=== PATIENT | female | born 1985 | race Asian ===

== ENCOUNTER 2019-01-27 19:50 | Emergency (ER) | payer OTHER ==
--- NOTE | 2019-01-27 20:21 | ED Physician Documentation ---
PD HPI ABD PAIN - Stated complaint Stated Complaint: BACK PX/FEVER/CHILLS/ACHES - Chief complaint Chief Complaint: Abd Pain - History obtained from History obtained from: Patient - History of Present Illness Timing - onset: Other (4 days ago with frequency/hematuria. That resolved p cranberry juice. Followed 2 days later with R lateral abd pain, fevers, chills/malaise. No vomiting.) Review of Systems Ten Systems: 10 systems reviewed and negative Constitutional: reports: Fever, Chills, Myalgias, Fatigue GI: reports: Abdominal Pain. 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 - Present Medications Home Medications: Ambulatory Orders Medication Instructions Recorded Confirmed Albuterol [Ventolin Hfa] 2 puffs INH Q4H PRN #1 inhaler 11/07/14 02/19/15 Ondansetron Odt [Zofran] 4 mg TL Q6H PRN #10 tablet 02/19/15 Hydrocodone/Acetaminophen 1 - 2 each PO Q6H PRN #14 tablet 02/20/15 [Hydrocodon-Acetaminophen 5-325] Promethazine [Phenergan] 25 mg PO Q6H PRN #10 tab 02/20/15 RX: HYDROcod/ACETAM 5/325 [[place] 1 - 2 ea PO Q6H PRN #15 tablet 05/27/16 5/325] Hydrocodone/Acetaminophen 1 - 2 each PO Q6H PRN #14 tablet 01/27/19 [Hydrocodon-Acetaminophen 5-325] Ondansetron Odt [Zofran] 4 mg TL Q6H PRN #10 tablet 01/27/19 RX: Cefdinir 300 mg PO BID #28 capsule 01/27/19 - Allergies Allergies/Adverse Reactions: Allergies Allergy/AdvReac Type Severity Reaction Status Date / Time No Known Drug Allergies Allergy Verified 02/19/15 10:22 - Social History Does the pt smoke?: Yes Smoking Status: Current every day smoker Does the pt drink ETOH?: Yes Does the pt have substance abuse?: No - Immunizations Immunizations are current?: Yes - POLST Patient has POLST: Yes PD ED PE NORMAL - Vitals Vital signs reviewed: Yes - General General: Alert and oriented X 3, No acute distress - Cardiac Cardiac: RRR, No murmur - Respiratory Respiratory: No respiratory distress, Clear bilaterally - Abdomen Abdomen: Non tender, Non distended - Back Back: No CVA TTP - Neuro Neuro: Alert and oriented X 3, Normal speech Results - Vitals Vitals: Vital Signs - 24 hr 01/27/19 01/27/19 19:55 22:58 Temperature 37.5 C 37.1 C Heart Rate 109 H 94 Respiratory 18 16 Rate Blood Pressure 138/98 H 129/80 O2 Saturation 97 96 Oxygen O2 Source Room air - Labs Labs: Laboratory Tests 01/27/19 01/27/19 01/27/19 20:21 20:21 20:43 WBC 8.7 RBC 4.58 Hgb 14.2 Hct 44.0 MCV 96.1 MCH 31.0 MCHC 32.3 RDW 13.2 Plt Count 246 MPV 9.4 Neut # (Auto) 6.3 Lymph # (Auto) 1.2 L [place] # (Auto) 1.1 H Eos # (Auto) 0.0 Baso # (Auto) 0.1 Absolute Nucleated RBC 0.00 Nucleated RBC % 0.0 Sodium Potassium Chloride Carbon Dioxide Anion Gap BUN Creatinine Estimated GFR (MDRD) Glucose Calcium Total Bilirubin AST ALT Alkaline Phosphatase Total Protein Albumin Globulin Albumin/Globulin Ratio Lipase Urine Color YELLOW Urine Clarity HAZY Urine pH 5.5 Ur Specific [place] 1.020 1.020 Urine Protein TRACE Urine Glucose (UA) NEGATIVE Urine Ketones NEGATIVE Urine Occult Blood SMALL H Urine Nitrite NEGATIVE Urine Bilirubin NEGATIVE Urine Urobilinogen 0.2 (NORMAL) Ur Leukocyte Esterase NEGATIVE Urine RBC 6-10 H Urine WBC 0-3 Ur Squamous Epith Cells FEW Squamous Urine Bacteria Few Ur Microscopic Review INDICATED Urine Culture Comments NOT INDICATED Urine HCG, Qual NEGATIVE 01/27/19 20:43 WBC RBC Hgb Hct MCV MCH MCHC RDW Plt Count MPV Neut # (Auto) Lymph # (Auto) [place] # (Auto) Eos # (Auto) Baso # (Auto) Absolute Nucleated RBC Nucleated RBC % Sodium 136 Potassium 3.9 Chloride 100 L Carbon Dioxide 24 Anion Gap 12.0 BUN 10 Creatinine 0.8 Estimated GFR (MDRD) 82 L Glucose 131 H Calcium 9.5 Total Bilirubin 0.6 AST 94 H ALT 98 H Alkaline Phosphatase 69 Total Protein 8.3 H Albumin 4.1 Globulin 4.2 Albumin/Globulin Ratio 1.0 Lipase 32 Urine Color Urine Clarity Urine pH Ur Specific [place] Urine Protein Urine Glucose (UA) Urine Ketones Urine Occult Blood Urine Nitrite Urine Bilirubin Urine Urobilinogen Ur Leukocyte Esterase Urine RBC Urine WBC Ur Squamous Epith Cells Urine Bacteria Ur Microscopic Review Urine Culture Comments Urine HCG, Qual PD MEDICAL DECISION MAKING - ED course ED course: 34-year-old woman presents with abdominal pain which was associated with fever at home but not here, and preceded by urinary symptoms which is all suggestive of pyelonephritis but her urinalysis was negative. Given her right upper quadrant pain and mildly elevated liver enzymes this was followed by an ultrasound which was suggestive of may be fatty liver, but really nothing acute in the biliary tract. During that time her pain moved down a little bit and this raises the suspicion for appendicitis despite the normal white blood cell count and she was sent for a CT. To my eye this was negative for appendicitis but Dr. Rivera will follow up on the formal read. If it is negative for acute pathology she can be safely discharged with watchful waiting and conservative care. Departure - Departure Disposition: Home, Self Care Clinical Impression: Abdominal pain, Fatty liver, Pyelonephritis Condition: Good Record reviewed to determine appropriate education?: Yes Instructions: ED Kidney Infec Female Follow-Up: RUEL LEONARDO [Primary Care Provider] - Within 3 Days Prescriptions: RX: Cefdinir 300 mg PO BID #28 capsule Hydrocodone/Acetaminophen [Hydrocodon-Acetaminophen 5-325] 1 - 2 each PO Q6H PRN #14 tablet PRN Reason: pain Ondansetron Odt [Zofran] 4 mg TL Q6H PRN #10 tablet PRN Reason: Nausea / Vomiting Comments: Your CT scan appears that you have an early kidney infection, possible early abscesses, this will need to be followed closely by your doctor. Take all antibiotics until gone even if you are feeling better. Return for worsening pain fevers or other new or worsening symptoms. You should also follow-up with your doctor to discuss this your fatty liver. Weight loss is normally the treatment for this. Do not drink alcohol or drive while on narcotic pain medicine. Note that many narcotic pain relievers also contain tylenol/acetaminophen. Please ensure that your total dose of acetaminophen from all sources does not exceed 3 grams (3000mg) per day. You may constipated on this medication, take a stool softener such as "Colace" twice a day while you are on it. Also recommend a [id number]-[id number]-[id number] laxative such as senna or MiraLAX any day that you do not have a bowel movement. If you received narcotic pain medication in the emergency department, do not drive or operate machinery for the next 24 hours. Discharge Date/Time: 01/27/19 23:19
[2019-01-27 20:32] LABS: BILIRUBIN,URINE NEGATIVE (NEGATIVE); GLUCOSE, URINE (UA) NEGATIVE (NEGATIVE); KETONES,URINE (UA) NEGATIVE (NEGATIVE); LEUKOCYTE ESTERASE, URINE NEGATIVE (NEGATIVE); NITRITE,URINE NEGATIVE (NEGATIVE); OCCULT BLOOD,URINE SMALL (NEGATIVE); PH,URINE 5.5 PH (5.0-7.5); PROTEIN,URINE TRACE mg/dL (NEGATIVE); UROBILINOGEN,URINE 0.2 (NORMAL) E.U./dL (NORMAL)
[2019-01-27 20:34] LABS: CLARITY,URINE HAZY (CLEAR)
[2019-01-27 20:35] LABS: HCG UR QUAL NEGATIVE
[2019-01-27 20:41] LABS: BACTERIA,URINE Few /HPF (None Seen); SQUAMOUS EPITHELIAL CELL,UR FEW Squamous (<= Few)
[2019-01-27 20:47] LABS: BASOPHILS # (AUTO) 0.1 10^3/uL (0.0-0.1); BASOPHILS % (AUTO) 0.7 %; EOSINOPHILS % (AUTO) 0.5 %; HGB - HEMOGLOBIN 14.2 g/dL (12.0-16.0); LYMPHOCYTES # (AUTO) 1.2 10^3/uL (1.5-3.5); LYMPHOCYTES % (AUTO) 13.4 %; MEAN CORPUSCULAR HGB CONC 32.3 g/dL (32.0-36.0); MEAN CORPUSCULAR VOLUME 96.1 fL (81.0-99.0); MEAN PLATELET VOLUME 9.4 fL (7.9-10.8); MONOCYTES # (AUTO) 1.1 10^3/uL (0.0-1.0); MONOCYTES % (AUTO) 12.6 %; NEUTROPHILS # (AUTO) 6.3 10^3/uL (1.5-6.6); NEUTROPHILS % (AUTO) 72.6 %; PLT - PLATELET COUNT 246 10^3/uL (130-450); RED BLOOD COUNT 4.58 10^6/uL (4.20-5.40); RED CELL DISTRIBUTION WIDTH 13.2 % (12.0-15.0); WHITE BLOOD COUNT 8.7 x10^3/uL (4.8-10.8)
[2019-01-27 21:00] LABS: ALBUMIN 4.1 g/dL (3.2-5.5); BILIRUBIN,TOTAL 0.6 mg/dL (0.2-1.0); CALCIUM 9.5 mg/dL (8.5-10.3); CREATININE 0.8 mg/dL (0.4-1.0); TOTAL PROTEIN 8.3 g/dL (6.7-8.2)
--- NOTE | 2019-01-27 21:49 | Ultrasound Report ---
Reason: RUQ pain Procedure Date: 01/27/2019 Accession Number: [id number] / [id number] Procedure: US - Abdomen Limited CPT Code: FULL RESULT: EXAM: ABDOMEN ULTRASOUND LIMITED, RUQ EXAM DATE: 01/27/2019 09:17 PM. CLINICAL HISTORY: RUQ pain. COMPARISON: ABDOMEN/PELVIS W/ 02/19/2015 12:17 PM. TECHNIQUE: Real-time scanning was performed with static images obtained. FINDINGS: Liver: Mildly heterogeneous hepatic parenchyma. No hepatic lesions. No intrahepatic ductal dilatation. The liver is not enlarged, 16.2 cm. Main portal vein flow: Hepatopetal. Gallbladder: Normal. No stones, wall thickening, or sonographic Leon's sign. Biliary System: CBD measures 3 mm. No intrahepatic or extrahepatic ductal dilatation. Other: Right kidney is normal in contour and echotexture and measures 12.5 cm. No hydronephrosis. The visualized portions of the pancreas is unremarkable. IMPRESSION: 1. Normal gallbladder. No biliary ductal dilatation. 2. Mildly heterogeneous hepatic parenchyma, nonspecific. No hepatic lesions. 3. Normal sonographic appearance of the right kidney. RADIA
[2019-01-27] MEDS ORDERED: IOVERSOL 320 100 ML VIAL IVP ONE ×2 (22:08→22:15)
--- NOTE | 2019-01-27 22:48 | CT Report ---
Reason: IV only RLQpain Procedure Date: 01/27/2019 Accession Number: [id number] / [id number] Procedure: CT - Abdomen/Pelvis W CPT Code: FULL RESULT: EXAM: CT ABDOMEN AND PELVIS EXAM DATE: 01/27/2019 10:16 PM. CLINICAL HISTORY: IV only RLQ pain. COMPARISONS: ABDOMEN/PELVIS W/ 02/19/2015 12:17 PM. TECHNIQUE: Routine helical CT imaging was performed through the abdomen and pelvis. IV contrast: OPTI 320 100ML. Enteric contrast: No. Reconstructions: Coronal and sagittal. In accordance with CT protocol optimization, one or more of the following dose reduction techniques were utilized for this exam: automated exposure control, adjustment of mA and/or KV based on patient size, or use of iterative reconstructive technique. FINDINGS: Lung Bases: Unremarkable. Liver: Normal. No masses. Gallbladder/Bile Ducts: Unremarkable. Spleen: Normal. Pancreas: Normal. Adrenal Glands: Normal. Kidneys: The kidneys are normally positioned. Within the right kidney there are 2 vague areas of decreased attenuation. The first area is near the upper anterior aspect of the right kidney and measures approximately 24 mm in size. The other vague area of decreased attenuation is more inferiorly and posteriorly located measuring 21 mm in size. There is no hydronephrosis. No similar lesions are seen in the left kidney. Peritoneal Cavity/Bowel: Normal. No free fluid, free air or adenopathy. No masses or acute inflammatory process. There are no inflammatory changes of the colon. No evidence for appendicitis. Pelvic Organs: Normal. The bladder and visualized pelvic organs are within normal limits. Vasculature: No aneurysms or other significant abnormality. Bones: No significant abnormality. Other: None. IMPRESSION: 1. Two Subtle areas of decreased attenuation in the right kidney. The findings are suspicious for developing focal nephronia (early abscess formations.) No hydronephrosis. No obstructing lesions. RADIA
[2019-01-27] MEDS ORDERED: cefTRIAXone 1 GM VIAL IVP STA (22:54)
[2019-01-27 22:58] VITALS: BP 129/80
--- NOTE | 2019-01-27 22:58 | ED Physician Documentation ---
ED Addendum - Addendum Addendum: 01/27/19 23:09 CT scan: Two Subtle areas of decreased attenuation in the right kidney. The findings are suspicious for developing focal nephronia (early abscess formations.) No hydronephrosis. No obstructing lesions. Patient will be treated for pyelonephritis. Given IV Rocephin and Zofran. Will place on pain medications, Zofran and oral antibiotics for home. She is well- appearing, nontoxic. Afebrile. No evidence of sepsis. Patient counseled regarding signs and symptoms for which I believe and urgent re-evaluation would be necessary. Patient with good understanding of and agreement to plan and is comfortable going home at this time This document was made in part using voice recognition software. While efforts are made to proofread this document, sound alike and grammatical errors may occur. Patient does still breast-feed her [id number] child. Counseled regarding lack of information regarding cefdinir for breast-feeding and recommend that she try to abstain if she can. Departure - Departure Disposition: 01 Home, Self Care Clinical Impression: Fatty liver, Pyelonephritis Abdominal pain Qualifiers: Abdominal location: right lower quadrant Qualified Code(s): R10.31 - Right lower quadrant pain Condition: Good Instructions: ED Kidney Infec Female Follow-Up: RUEL LEONARDO [Primary Care Provider] - Within 3 Days Prescriptions: Cefdinir 300 mg PO BID #28 capsule Hydrocodone/Acetaminophen [Hydrocodon-Acetaminophen 5-325] 1 - 2 each PO Q6H PRN #14 tablet PRN Reason: pain Ondansetron Odt [Zofran] 4 mg TL Q6H PRN #10 tablet PRN Reason: Nausea / Vomiting Comments: Your CT scan appears that you have an early kidney infection, possible early abscesses, this will need to be followed closely by your doctor. Take all antibiotics until gone even if you are feeling better. Return for worsening pain fevers or other new or worsening symptoms. You should also follow-up with your doctor to discuss this your fatty liver. Weight loss is normally the treatment for this. Do not drink alcohol or drive while on narcotic pain medicine. Note that many narcotic pain relievers also contain tylenol/acetaminophen. Please ensure that your total dose of acetaminophen from all sources does not exceed 3 grams (3000mg) per day. You may constipated on this medication, take a stool softener such as "Colace" twice a day while you are on it. Also recommend a ktaf-oaz-tfelpxm laxative such as senna or MiraLAX any day that you do not have a bowel movement. If you received narcotic pain medication in the emergency department, do not drive or operate machinery for the next 24 hours.
[2019-01-27] MEDS ORDERED: ONDANSETRON 4 MG/2 ML VIAL IVP STA (23:06)
== END 2019-01-27 23:19 | disposition home or self-care (01) ==
LOC: ED 19:50
DX: N12 Tubulo-interstitial nephritis, not specified as acute or chronic (principal); K76.0 Fatty (change of) liver, not elsewhere classified; F17.200 Nicotine dependence, unspecified, uncomplicated
CPT/HCPCS: 36415; 74177; 76705; 80053; 81001; 81025; 83690; 85025; 96374; 99284; Q9967; 81003; 87086

== ENCOUNTER 2019-05-17 16:12 | Emergency (ER) | payer OTHER ==
[2019-05-17 16:17] VITALS: BP 124/87
[2019-05-17] MEDS ORDERED: ONDANSETRON ODT 4 MG TABLET TL STA (16:26)
[2019-05-17] MEDS ORDERED: IBUPROFEN 800 MG TABLET PO STA (16:26)
--- NOTE | 2019-05-17 16:27 | ED Physician Documentation ---
PD HPI ABD PAIN - Stated complaint Stated Complaint: BILATERAL FLANK PX, NAUSEA - Chief complaint Chief Complaint: Abd Pain - History obtained from History obtained from: Patient (Few months ago she was seen for flank pain, her urine was negative and her blood work was unremarkable. She was eventually found to have focal nephronia on CT only and improved rapidly after antibiotics were initiated. She feels like over the last 2 weeks the symptoms have recurred, it started in the left flank down the right flank. Is not associated with any fevers or chills. No urinary complaints. She is nauseous. Denies possibility of as she has Nexplanon in place.) Review of Systems Constitutional: denies: Fever, Chills Respiratory: denies: Dyspnea, Cough GI: reports: Nausea. 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 - Present Medications Home Medications: Ambulatory Orders Medication Instructions Recorded Confirmed Cefdinir 300 mg PO BID #20 capsule 05/17/19 Hydrocodone/Acetaminophen 1 - 2 each PO Q6H PRN #10 tablet 05/17/19 [Hydrocodon-Acetaminophen 5-325] - Allergies Allergies/Adverse Reactions: Allergies Allergy/AdvReac Type Severity Reaction Status Date / Time No Known Drug Allergies Allergy Verified 05/17/19 16:17 - Social History Does the pt smoke?: Yes Smoking Status: Current every day smoker Does the pt drink ETOH?: Yes Does the pt have substance abuse?: No - Immunizations Immunizations are current?: Yes - POLST Patient has POLST: Yes PD ED PE NORMAL - Vitals Vital signs reviewed: Yes - General General: Alert and oriented X 3, No acute distress - Respiratory Respiratory: No respiratory distress - Abdomen Abdomen: Normal bowel sounds, Soft, Non tender - Back Back: Other (Mild left and moderate right CVA tenderness) - Extremities Extremities: No edema, No calf tenderness / cord - Neuro Neuro: Alert and oriented X 3, Normal speech Results - Vitals Vitals: Vital Signs - 24 hr 05/17/19 16:15 Temperature 37.1 C Heart Rate 80 Respiratory 20 Rate Blood Pressure 124/87 H O2 Saturation 98 Oxygen O2 Source Room air - Labs Labs: Laboratory Tests 05/17/19 16:20 Urine Color LT. YELLOW Urine Clarity N Urine pH 6.0 Ur Specific [place] 1.015 Urine Protein NEGATIVE Urine Glucose (UA) NEGATIVE Urine Ketones 15 H Urine Occult Blood NEGATIVE Urine Nitrite NEGATIVE Urine Bilirubin NEGATIVE Urine Urobilinogen 0.2 (NORMAL) Ur Leukocyte Esterase NEGATIVE Ur Microscopic Review NOT INDICATED Urine Culture Comments NOT INDICATED Urine HCG, Qual NEGATIVE PD MEDICAL DECISION MAKING - ED course ED course: For her this episode is very similar to the focal nephronia she had a few months ago. Her urine is normal, but it was then 2. We discussed options of either trial of antibiotics versus advanced imaging again tonight and she opted for the former. Departure - Departure Disposition: 01 Home, Self Care Clinical Impression: Pyelonephritis Condition: Good Record reviewed to determine appropriate education?: Yes Instructions: Pyelonephritis Dc Prescriptions: Cefdinir 300 mg PO BID #20 capsule Hydrocodone/Acetaminophen [Hydrocodon-Acetaminophen 5-325] 1 - 2 each PO Q6H PRN #10 tablet PRN Reason: pain Comments: Return for new or worsening symptoms, or if you develop a high fever. Follow-up with your doctor midweek for recheck.
[2019-05-17 16:30] LABS: BILIRUBIN,URINE NEGATIVE (NEGATIVE); GLUCOSE, URINE (UA) NEGATIVE (NEGATIVE); KETONES,URINE (UA) 15 mg/dL (NEGATIVE); LEUKOCYTE ESTERASE, URINE NEGATIVE (NEGATIVE); NITRITE,URINE NEGATIVE (NEGATIVE); OCCULT BLOOD,URINE NEGATIVE (NEGATIVE); PROTEIN,URINE NEGATIVE (NEGATIVE); UROBILINOGEN,URINE 0.2 (NORMAL) E.U./dL (NORMAL)
[2019-05-17 16:32] LABS: CLARITY,URINE N (CLEAR); HCG UR QUAL NEGATIVE
[2019-05-17] MEDS ORDERED: HYDROcod/ACET 5/325 Prepack 4 PO STA (16:45)
[2019-05-17] MEDS ORDERED: cefUROXime axetil 250 MG TABLET PO STA (16:48)
== END 2019-05-17 16:56 | disposition home or self-care (01) ==
LOC: ED 16:12
DX: N12 Tubulo-interstitial nephritis, not specified as acute or chronic (principal); F17.200 Nicotine dependence, unspecified, uncomplicated
CPT/HCPCS: 81003; 81025; 87086; 99283; A9270; Q0162; 81001

== ENCOUNTER 2022-04-11 14:47 | Outpatient (CLI) | payer SELFPAY ==
--- NOTE | 2022-04-11 17:59 | XRAY Report ---
PROCEDURE: Lumbar Spine 2 View INDICATIONS: LOW BACK PX TECHNIQUE: 3 views of the lumbar spine were acquired. COMPARISON: None. FINDINGS: Bones: 5 [id number] vertebrae are present. Minimal degenerative changes with disc space narrow ing at L4-5 and L5-S1. There is normal bony alignment. No vertebral body compression fractures. No suspicious bony lesions. Soft tissues: Overlying bowel gas pattern is normal. No suspicious soft tissue calcifications. IMPRESSION: Degenerative disc disease at L4-5 and L5-S1. Reviewed by: Bernard Villareal on 04/11/2022 5:58 PM PDT Approved by: Bernard Villareal on 04/11/2022 5:58 PM PDT Station ID: [id number]
== END 2022-04-11 23:59 | disposition home or self-care (01) ==
LOC: DI.N 14:47
PROVIDERS: ATTEND Registered Nurse
DX: M47.26 Other spondylosis with radiculopathy, lumbar region (principal); M47.27 Other spondylosis with radiculopathy, lumbosacral region